=== PATIENT | female | born 1965 | race Caucasian/White ===

== ENCOUNTER 2018-04-29 07:09 | Inpatient (IN) | payer BC ==
--- OUTSIDE RECORDS SUMMARY | 2018-04-29 07:11 | XMS REPORT ---
:1965 [facility] Team Providers Name Role Phone Esther Lennon Provider Role Unavailable Allergies, Adverse Reactions, Alerts Substance Reaction Event Type Lisinopril cough/ heart flutters Drug Allergy Problems Problem Type Condition Code Onset Dates Condition Status Problem Obesity (BMI 30-39.9) E66.9 Active Problem Allergic rhinitis J30.9 Active Problem HTN (hypertension) I10 Active Problem Chest pain, unspecified type R07.9 Active Problem Upper back pain M54.9 Active Problem Mixed hyperlipidemia E78.2 Active Problem Hypertriglyceridemia E78.1 Active Problem Cervical pain (neck) M54.2 Active Problem Strep throat J02.0 Active Problem Lymphadenopathy R59.1 Active Assessment MARIXA (obstructive sleep apnea) G47.33 Active Assessment Mixed hyperlipidemia E78.2 Active Assessment Chest pain, unspecified type R07.9 Active Assessment HTN (hypertension) I10 Active Problem Hypertension, unspecified type I10 Active Assessment Upper back pain M54.9 Active Problem MARIXA (obstructive sleep apnea) G47.33 Active Medications Medication Code Code Instructions Start End Status Dosage System Date Date Losartan [facility] 13456087448 50 MG Orally Active 1 tablet Potassium Once a day Cardura [facility] 66362761007 1 MG Orally Active 1 tablet Once a day ProAir HFA [facility] 83521503419 108 (90 Base) Jan 30, Active 2 puffs as MCG/ACT 2018 needed for Inhalation sob/wheezing every 4-6 hrs Nasonex ND 26784138648 50 MCG/ACT Active 2 sprays in Nasally Once a each nostril day Advil [facility] 79444169789 200 MG Orally Active 1 tablet with Three times a food or milk day as needed Pennsaid [facility] 63642503685 2 % Transdermal Active 2 applications Twice a day to affected area Aspirin ND 62224682072 81 MG Orally Active 1 tablet Once daily Acyclovir ND 77527480413 400 MG Orally Active 1 tablet Twice a day Singulair [facility] 45725473030 10 MG Orally Active 1 tablet in Once a day the evening Multivitamin [facility] 61099496522 - Orally Active not defined Adult Results No Known Results Summary Purpose eClinicalWorks Submission
--- OUTSIDE RECORDS SUMMARY | 2018-04-29 07:11 | XMS REPORT ---
:1965 Author Organization e[employer] Care Team Providers Name Role Phone Esther Lennon Provider Role Unavailable Allergies, Adverse Reactions, Alerts Substance Reaction Event Type Lisinopril cough/ heart flutters Drug Allergy Problems Problem Type Condition Code Onset Dates Condition Status Problem MARIXA (obstructive sleep apnea) G47.33 Active Problem Hypertension, unspecified type I10 Active Assessment Strep throat J02.0 Active Assessment URI, acute J06.9 Active Assessment Acute pharyngitis, unspecified J02.9 Active etiology Problem Strep throat J02.0 Active Problem Cervical pain (neck) M54.2 Active Problem Lymphadenopathy R59.1 Active Problem Hypertriglyceridemia E78.1 Active Problem Obesity (BMI 30-39.9) E66.9 Active Problem Allergic rhinitis J30.9 Active Problem HTN (hypertension) I10 Active Medications Medication Code Code Instructions Start End Status Dosage System Date Date Aspirin [facility] 54869807695 81 MG Orally Active 1 tablet Once daily ProAir HFA [facility] 07157414570 108 (90 Base) Jan 30, Active 2 puffs as MCG/ACT 2018 needed for Inhalation sob/wheezing every 4-6 hrs Advil [facility] 07139918972 200 MG Orally Active 1 tablet with Three times a food or milk day as needed Cardura [facility] 15327781915 1 MG Orally Active 1 tablet Once a day Singulair [facility] 33085448985 10 MG Orally Active 1 tablet in Once a day the evening Acyclovir [facility] 79054782991 400 MG Orally Active 1 tablet Twice a day Pennsaid [facility] 77196378409 2 % Active 2 applications Transdermal to affected Twice a day area Nasonex [facility] 23825707857 50 MCG/ACT Active 2 sprays in Nasally Once a each nostril day Multivitamin [facility] 69931955468 - Orally Active not defined Adult Losartan [facility] 85377936315 50 MG Orally Active 1 tablet Potassium Once a day Clarithromycin [facility] 08646273181 500 MG Orally Mar 09Mar Active 1 tablet every 12 hrs 2018 Diflucan [facility] 35123612786 150 MG Orally Mar 09Mar Active as directed 1 tablet now; 2018 08, then repeat 2018 after completing abx. Results Name Result Date Reference Range Unit Abnormality Flag FLU TEST ----A Negative [id number] ----B Negative [id number] STREP A RAPID ----Result Positive [id number] Summary Purpose eClinicalWorks Submission
--- OUTSIDE RECORDS SUMMARY | 2018-04-29 07:11 | XMS REPORT ---
:1965 Author Organization eClinicalWorks Care Team Providers Name Role Phone Esther Lennon Provider Role Unavailable Allergies, Adverse Reactions, Alerts Substance Reaction Event Type Lisinopril cough/ heart flutters Drug Allergy Problems Problem Type Condition Code Onset Dates Condition Status Assessment MARIXA (obstructive sleep apnea) G47.33 Active Assessment Hypertension, unspecified type I10 Active Assessment Hypertriglyceridemia E78.1 Active Assessment Allergic rhinitis, unspecified J30.9 Active seasonality, unspecified trigger Assessment Obesity (BMI 30-39.9) E66.9 Active Problem HTN (hypertension) I10 Active Problem Hypertriglyceridemia E78.1 Active Problem Allergic rhinitis J30.9 Active Problem Obesity (BMI 30-39.9) E66.9 Active Problem MARIXA (obstructive sleep apnea) G47.33 Active Problem Cervical pain (neck) M54.2 Active Problem Hypertension, unspecified type I10 Active Medications Medication Code Code Instructions Start End Status Dosage System Date Date Aspirin [facility] 73886022050 81 MG Orally Active 1 tablet Once daily Advil [facility] 65203185350 200 MG Orally Active 1 tablet with Three times a food or milk day as needed Singulair [facility] 45965591742 10 MG Orally Active 1 tablet in Once a day the evening Losartan ND 23139093123 50 MG Orally Active 1 tablet Potassium Once a day Pennsaid [facility] 70567270754 2 % Transdermal Active 2 applications Twice a day to affected area Multivitamin [facility] 33854654583 - Orally Active not defined Adult Cardura [facility] 52143292850 1 MG Orally Active 1 tablet Once a day Nasonex ND 86574910509 50 MCG/ACT Active 2 sprays in Nasally Once a each nostril day Acyclovir [facility] 04178293492 400 MG Orally Active 1 tablet Twice a day Results No Known Results Summary Purpose eClinicalWorks Submission
--- OUTSIDE RECORDS SUMMARY | 2018-04-29 07:11 | XMS REPORT ---
:1965 Author Organization eClinicalWorks Care Team Providers Name Role Phone Esther Lennon Provider Role Unavailable Allergies No Known Allergies Problems Problem Type Condition Code Onset Dates Condition Status Problem MARIXA (obstructive sleep apnea) G47.33 Active Problem Hypertension, unspecified type I10 Active Problem Strep throat J02.0 Active Problem Cervical pain (neck) M54.2 Active Problem Lymphadenopathy R59.1 Active Problem Hypertriglyceridemia E78.1 Active Problem Obesity (BMI 30-39.9) E66.9 Active Problem Allergic rhinitis J30.9 Active Problem HTN (hypertension) I10 Active Medications No Known Medications Results No Known Results Summary Purpose eClinicalWorks Submission
--- OUTSIDE RECORDS SUMMARY | 2018-04-29 07:11 | XMS REPORT ---
:1965 Author Organization eClinicalWorks Care Team Providers Name Role Phone Esther Lennon Provider Role Unavailable Allergies No Known Allergies Problems Problem Type Condition Code Onset Dates Condition Status Problem MARIXA (obstructive sleep apnea) G47.33 Active Problem Hypertension, unspecified type I10 Active Assessment Lymphadenopathy R59.1 Active Assessment Strep throat J02.0 Active Problem Strep throat J02.0 Active Problem Cervical pain (neck) M54.2 Active Problem Lymphadenopathy R59.1 Active Problem Hypertriglyceridemia E78.1 Active Problem Obesity (BMI 30-39.9) E66.9 Active Problem Allergic rhinitis J30.9 Active Problem HTN (hypertension) I10 Active Medications No Known Medications Results No Known Results Summary Purpose eClinicalWorks Submission
--- NOTE | 2018-04-29 07:41 | ER ---
Nurse's Notes [facility] Name: Fouzia Reinoso Age: 53 yrs Sex: Female : 1965 Arrival Date: 04/29/2018 Time: 07:11 Bed 7 Private MD: Diagnosis: Chest pain, unspecified;Angina pectoris;Essential (primary) hypertension;Non-ST elevation (NSTEMI) myocardial infarction Presentation: 04/29 07:15 Presenting complaint: Substernal chest pain that radiates to upper back and nausea that hb started after getting out of bed this morning. Transition of care: patient was not received from another setting of care. Onset of symptoms was April 29, 2018. Risk Assessment: Do you want to hurt yourself or someone else? Patient reports no desire to harm self or others. Initial Sepsis Screen: Does the patient meet any 2 criteria? No. Patient's initial sepsis screen is negative. Does the patient have a suspected source of infection? No. Patient's initial sepsis screen is negative. Care prior to arrival: None. 07:15 Method Of Arrival: Ambulatory hb 07:15 Acuity: SUNNY 3 hb Historical: - Allergies: 07:17 No Known Allergies; hb - Home Meds: 07:17 unknown hypertension med [Active]; hb - PMHx: 07:17 Hypertension; GERD; hb - Immunization history:: Adult Immunizations up to date. - Social history:: Smoking status: Patient/guardian denies using tobacco. - Ebola Screening: : No symptoms or risks identified at this time. - Family history:: not pertinent. Screenin:18 Abuse screen: Denies threats or abuse. Denies injuries from another. Nutritional hb screening: No deficits noted. Tuberculosis screening: No symptoms or risk factors identified. Fall Risk None identified. Assessment: 07:30 General: Appears in no apparent distress. comfortable, well groomed, well developed, sg well nourished, Behavior is calm, cooperative, appropriate for age. Pain: Complains of pain in right scapular area, thoracic area and mid-sternal area Pain currently is 2 out of 10 on a pain scale. Neuro: Level of Consciousness is awake, alert, obeys commands, Oriented to person, place, time, Computer Science Professor are equal bilaterally Moves all extremities. Full function Gait is steady, Speech is normal, Facial symmetry appears normal. Cardiovascular: Capillary refill is brisk in bilateral fingers Patient's skin is warm and dry. Chest pain quality is clutching. Respiratory: Airway is patent Respiratory effort is even, unlabored, Respiratory pattern is regular, symmetrical, Denies cough, shortness of breath labored breathing. GI: Abdomen is round non-distended, Abd is soft and non tender X 4 quads. Reports normal bowel habits, tolerance of fluids, tolerance of food. : No signs and/or symptoms were reported regarding the genitourinary system. EENT: No signs and/or symptoms were reported regarding the EENT system. Derm: Skin is pink, warm \T\ dry. Musculoskeletal: No signs and/or symptoms reported regarding the musculoskeletal system. 07:49 Reassessment: Patient appears in no apparent distress at this time. xray at bedside at this time. 08:10 Reassessment: Patient appears in no apparent distress at this time. Patient is alert, sg oriented x 3, equal unlabored respirations, skin warm/dry/pink. Patient denies pain at this time. 09:10 Reassessment: Patient appears in no apparent distress at this time. Patient and/or sg family updated on plan of care and expected duration. Pain level reassessed. Patient is alert, oriented x 3, equal unlabored respirations, skin warm/dry/pink. at bedside updating pt on POC and the need for admission, pt and pt family stated understanding, pt stated understanding, awaiting a bed assignment. Patient denies pain at this time. Patient states feeling better. 10:20 Reassessment: Patient appears in no apparent distress at this time. No changes from aj1 previously documented assessment. Patient and/or family updated on plan of care and expected duration. Pain level reassessed. Patient is alert, oriented x 3, equal unlabored respirations, skin warm/dry/pink. 11:20 Reassessment: Patient and/or family updated on plan of care and expected duration. Pain aj1 level reassessed. Reassessment: Patient denies pain at this time. General: Appears in no apparent distress. comfortable, Behavior is calm, cooperative, appropriate for age. Neuro: Level of Consciousness is awake, alert, obeys commands, Oriented to person, place, time, situation, Speech is normal, Facial symmetry appears normal. Cardiovascular: Patient's skin is warm and dry. Chest pain is resolved at this time. Cardiovascular: Rhythm is sinus rhythm. Respiratory: Airway is patent Respiratory effort is even, unlabored, Respiratory pattern is regular, symmetrical. Derm: Skin is pink, warm \T\ dry. normal. Musculoskeletal: No signs and/or symptoms reported regarding the musculoskeletal system. Circulation, motion, and sensation intact. 12:00 Reassessment: Dr. Whipple at bedside. aj1 12:20 Reassessment: Patient appears in no apparent distress at this time. No changes from aj1 previously documented assessment. Patient and/or family updated on plan of care and expected duration. Pain level reassessed. Patient is alert, oriented x 3, equal unlabored respirations, skin warm/dry/pink. Patient denies pain at this time. 12:25 Reassessment: Notified Dr. Vazquez of patients repeat troponin level. Repeat EKG aj1 obtained. Dr Vazquez states he will come see the patient Patient denies pain at this time. 12:49 Reassessment: Dr. Vazquez at bedside. aj1 13:16 Reassessment: Patient and/or family updated on plan of care and expected duration. Pain aj1 level reassessed. General: Appears in no apparent distress. comfortable, Behavior is calm, cooperative, appropriate for age. Pain: Denies pain. Neuro: Level of Consciousness is awake, alert, obeys commands. Cardiovascular: Patient's skin is warm and dry. Rhythm is sinus rhythm Chest pain is denied at this time. Respiratory: Airway is patent Respiratory effort is even, unlabored, Respiratory pattern is regular, symmetrical. Derm: Skin is pink, warm \T\ dry. normal. Musculoskeletal: Circulation, motion, and sensation intact. 14:25 Reassessment: Patient appears in no apparent distress at this time. No changes from aj1 previously documented assessment. Patient and/or family updated on plan of care and expected duration. Pain level reassessed. Patient is alert, oriented x 3, equal unlabored respirations, skin warm/dry/pink. Vital Signs: 07:15 BP 159 / 107; Pulse 83; Resp 22; Pulse Ox 100% on R/A; sg 07:35 Weight 106.59 kg; sg 07:49 BP 132 / 93; Pulse 65; Resp 18; sg 07:52 Temp 97.2; sg 08:21 BP 129 / 84; Pulse 58; Resp 12; Pulse Ox 100% ; Pain 2/10; sg 09:20 BP 133 / 69; Pulse 80; Resp 17; Temp 97.2; Pulse Ox 98% on R/A; sg 10:20 BP 125 / 74; Pulse 60; Resp 18; Pulse Ox 99% on R/A; aj1 11:30 BP 119 / 64; Pulse 57; Resp 18; Pulse Ox 96% on R/A; aj1 13:30 BP 118 / 62; Pulse 66; Resp 18; Pulse Ox 97% on R/A; aj1 14:25 BP 116 / 70; Pulse 68; Resp 18; Pulse Ox 97% on R/A; aj1 Vitals: 08:21 Cardiac Rhythm Assessment Sinus dejuan. ED Course: 07:11 Patient arrived in ED. mr 07:14 Prem Duff MD is Attending Physician. luis 07:17 Triage completed. hb 07:17 Wing Perez RN is Primary Nurse. sg 07:17 Arm band placed on. hb 07:20 EKG done, by ED staff, reviewed by Prem Duff MD. sg 07:22 EKG done, by ED staff, reviewed by Prem Duff MD. dh3 07:30 Patient has correct armband on for positive identification. Bed in low position. Call sg light in reach. Side rails up X2. engine monitor on. Pulse ox on. NIBP on. Warm blanket given. Head of bed elevated. 07:39 Nathalie Vazquez MD is Hospitalizing Provider. luis 07:39 Yovani Macario DO is Hospitalizing Provider. luis 07:40 Initial lab(s) drawn, by me, sent to lab. Inserted saline lock: 20 gauge in left 3 antecubital area, using aseptic technique. Blood collected. 08:50 CT completed. Patient tolerated procedure well. Patient moved to CT via stretcher. kw1 Patient moved back from CT. 09:22 EKG done, by ED staff, reviewed by Prem Duff MD. dh3 11:47 Repeat lab(s) drawn. by me, sent to lab. 3 12:23 Notified ED physician of a critical lab result(s). trop 3.49. la1 13:51 Report given to NOEMÍ Eddy on 2nd floor. aj1 13:51 No provider procedures requiring assistance completed. Patient admitted, IV remains in aj1 place. Patient maintains SpO2 saturation greater than 95% on room air. Administered Medications: 07:40 Drug: NS 0.9% 1000 ml Route: IV; Rate: 125 ml/hr; Site: left antecubital; sg 14:24 Follow up: IV Status: Completed infusion; IV Intake: 750ml aj1 07:40 Drug: Aspirin Chewable Tablet 324 mg Route: PO; sg 08:23 Not Given (Duplicate Order): PlaVIX 300 mg PO once; if ct dissection neg luis 09:00 Drug: Lopressor 25 mg Route: PO; sg 09:00 Drug: Lovenox 1 mg/kg Route: Sub-Q; Site: right lower abdomen; sg 09:00 Drug: Pepcid 20 mg Route: IVP; Site: left antecubital; sg 13:53 Follow up: Response: No adverse reaction aj1 09:10 Drug: PlaVIX 600 mg Route: PO; sg 13:52 Follow up: Response: No adverse reaction aj1 11:54 Not Given (Zocor unavailable at this time, order changed to Lipitor): Zocor 40 mg PO aj1 once 12:22 Drug: Lipitor 40 mg Route: PO; aj1 13:52 Follow up: Response: No adverse reaction aj1 14:23 Not Given (Patient Refused): morphine 2 mg IVP once aj1 14:23 Not Given (Patient Refused): morphine 2 mg IVP once aj1 14:24 Not Given (Patient Refused): Zofran 4 mg IVP once; over 2 minutes aj1 Intake: 14:24 IV: 750ml; Total: 750ml. aj1 Outcome: 07:40 Decision to Hospitalize by Provider. [facility] 14:26 Admitted to Tele accompanied by tech, via wheelchair, with chart. aj1 14:26 Condition: stable 14:26 Discharge instructions given to family, Instructed on the need for admit, Demonstrated understanding of instructions. 14:26 Patient left the ED. aj1 Signatures: Irena Hernandez RN RN aj1 Wing Perez, RN Prem Saini MD MD cha Rivera, Mary mr Attema, Farshad RN NOEMÍ la1 Beth Correa RN RN hb Herrera, Palua 3 Noelle Vargas
--- NOTE | 2018-04-29 07:41 | EDPHYS ---
Physician Documentation [facility] Name: Fouzia Reinoso Age: 53 yrs Sex: Female : 1965 Arrival Date: 04/29/2018 Time: 07:11 Bed 7 Private MD: ED Physician Prem Duff HPI: 04/29 07:33 This 53 yrs old Female presents to ER via Ambulatory with complaints of Chest luis Pain. 07:33 The patient or guardian reports chest pain that is located primarily in the substernal luis area, epigastric area. Onset: 4 day(s) ago. The pain does not radiate. Associated signs and symptoms: The patient has no apparent associated signs or symptoms. The chest pain is described as a heaviness, a pressure. Duration: The patient or guardian reports multiple episodes, that have now resolved. Severity of pain: At its worst the pain was moderate. The patient has not experienced similar symptoms in the past. Historical: - Allergies: 07:17 No Known Allergies; hb - Home Meds: 07:17 unknown hypertension med [Active]; hb - PMHx: 07:17 Hypertension; GERD; hb - Immunization history:: Adult Immunizations up to date. - Social history:: Smoking status: Patient/guardian denies using tobacco. - Ebola Screening: : No symptoms or risks identified at this time. - Family history:: not pertinent. ROS: 07:33 Constitutional: Negative for fever, chills, and weight loss, Eyes: Negative for injury, luis pain, redness, and discharge, ENT: Negative for injury, pain, and discharge, Neck: Negative for injury, pain, and swelling, Respiratory: Negative for shortness of breath, cough, wheezing, and pleuritic chest pain, Abdomen/GI: Negative for abdominal pain, nausea, vomiting, diarrhea, and constipation, Back: Negative for injury and pain, : Negative for injury, bleeding, discharge, and swelling, MS/Extremity: Negative for injury and deformity, Skin: Negative for injury, rash, and discoloration, Neuro: Negative for headache, weakness, numbness, tingling, and seizure, Psych: Negative for depression, anxiety, suicide ideation, homicidal ideation, and hallucinations, Allergy/Immunology: Negative for hives, rash, and allergies, Endocrine: Negative for neck swelling, polydipsia, polyuria, polyphagia, and marked weight changes, Hematologic/Lymphatic: Negative for swollen nodes, abnormal bleeding, and unusual bruising. 07:33 Cardiovascular: Positive for chest pain. Exam: 07:33 Constitutional: This is a well developed, well nourished patient who is awake, alert, luis and in no acute distress. Head/Face: Normocephalic, atraumatic. Eyes: Pupils equal round and reactive to light, extra-ocular motions intact. Lids and lashes normal. Conjunctiva and sclera are non-icteric and not injected. Cornea within normal limits. Periorbital areas with no swelling, redness, or edema. ENT: Nares patent. No nasal discharge, no septal abnormalities noted. Tympanic membranes are normal and external auditory canals are clear. Oropharynx with no redness, swelling, or masses, exudates, or evidence of obstruction, uvula midline. Mucous membranes moist. Neck: Trachea midline, no thyromegaly or masses palpated, and no cervical lymphadenopathy. Supple, full range of motion without nuchal rigidity, or vertebral point tenderness. No Meningismus. Chest/axilla: Normal chest wall appearance and motion. Nontender with no deformity. No lesions are appreciated. Cardiovascular: Regular rate and rhythm with a normal S1 and S2. No gallops, murmurs, or rubs. Normal PMI, no JVD. No pulse deficits. Respiratory: Lungs have equal breath sounds bilaterally, clear to auscultation and percussion. No rales, rhonchi or wheezes noted. No increased work of breathing, no retractions or nasal flaring. Abdomen/GI: Soft, non-tender, with normal bowel sounds. No distension or tympany. No guarding or rebound. No evidence of tenderness throughout. Back: No spinal tenderness. No costovertebral tenderness. Full range of motion. Skin: Warm, dry with normal turgor. Normal color with no rashes, no lesions, and no evidence of cellulitis. MS/ Extremity: Pulses equal, no cyanosis. Neurovascular intact. Full, normal range of motion. Neuro: Awake and alert, GCS 15, oriented to person, place, time, and situation. Cranial nerves II-XII grossly intact. Motor strength 5/5 in all extremities. Sensory grossly intact. Cerebellar exam normal. Normal gait. Psych: Awake, alert, with orientation to person, place and time. Behavior, mood, and affect are within normal limits. 07:33 Musculoskeletal/extremity: DVT Exam: No signs of deep vein thrombosis. no pain, no swelling, no tenderness, negative Homans' sign noted on exam, no appreciated bluish discoloration, no erythema, no increased warmth. Vital Signs: 07:15 BP 159 / 107; Pulse 83; Resp 22; Pulse Ox 100% on R/A; sg 07:35 Weight 106.59 kg; sg 07:49 BP 132 / 93; Pulse 65; Resp 18; sg 07:52 Temp 97.2; sg 08:21 BP 129 / 84; Pulse 58; Resp 12; Pulse Ox 100% ; Pain 2/10; sg 09:20 BP 133 / 69; Pulse 80; Resp 17; Temp 97.2; Pulse Ox 98% on R/A; sg 10:20 BP 125 / 74; Pulse 60; Resp 18; Pulse Ox 99% on R/A; aj1 11:30 BP 119 / 64; Pulse 57; Resp 18; Pulse Ox 96% on R/A; aj1 13:30 BP 118 / 62; Pulse 66; Resp 18; Pulse Ox 97% on R/A; aj1 14:25 BP 116 / 70; Pulse 68; Resp 18; Pulse Ox 97% on R/A; aj1 MDM: 07:14 Patient medically screened. [facility] 07:36 Data reviewed: vital signs, nurses notes, lab test result(s), EKG, radiologic studies, [facility] CT scan, plain films. 04/29 07:32 Order name: Basic Metabolic Panel [facility] 04/29 07:32 Order name: CBC with Diff [facility] 04/29 07:32 Order name: LFT's [facility] 04/29 07:32 Order name: Magnesium [facility] 04/29 07:32 Order name: NT PRO-BNP [facility] 04/29 07:32 Order name: PT-INR [facility] 04/29 07:32 Order name: Troponin (emerg Dept Use Only) [facility] 04/29 07:32 Order name: Lipase [facility] 04/29 07:32 Order name: Urine Culture [facility] 04/29 08:01 Order name: CBC with Automated Diff; Complete Time: 08:22 EDPR 04/29 08:07 Order name: Protime (+INR); Complete Time: 08:22 EDPR 04/29 08:13 Order name: Basic Metabolic Panel; Complete Time: 08:22 EDPR 04/29 08:13 Order name: Liver (Hepatic) Function; Complete Time: 08:22 EDPR 04/29 08:13 Order name: Troponin (Emerg Dept Use Only); Complete Time: 08:22 [facility] 04/29 07:32 Order name: XRAY Chest (1 view) [facility] 04/29 07:32 Order name: CT Aorta for Dissection [facility] 04/29 08:13 Order name: NT PRO-BNP; Complete Time: 08:22 EDPR 04/29 08:13 Order name: Magnesium; Complete Time: 08:22 EDPR 04/29 08:13 Order name: Lipase; Complete Time: 08:22 EDPR 04/29 09:27 Order name: CT; Complete Time: 10:42 [facility] 04/29 10:13 Order name: Urine Dipstick--Ancillary (enter results) md 04/29 10:35 Order name: RAD; Complete Time: 10:42 [facility] 04/29 10:43 Order name: Lipid Profile [facility] 04/29 11:37 Order name: Troponin (emerg Dept Use Only) [facility] 04/29 12:24 Order name: Troponin (Emerg Dept Use Only) [facility] 04/29 13:59 Order name: Urine Dipstick-Ancillary [facility] 04/29 07:32 Order name: EKG; Complete Time: 07:33 [facility] 04/29 07:32 Order name: Cardiac monitoring; Complete Time: 07:44 [facility] 04/29 07:32 Order name: EKG - Nurse/Tech; Complete Time: 07:44 [facility] 04/29 07:32 Order name: IV Saline Lock; Complete Time: 07:45 [facility] 04/29 07:32 Order name: Labs collected and sent; Complete Time: 07:45 [facility] 04/29 07:32 Order name: O2 Per Protocol; Complete Time: 07:45 [facility] 04/29 07:32 Order name: O2 Sat Monitoring; Complete Time: 07:45 [facility] 04/29 07:32 Order name: Urine Dipstick-Ancillary (obtain specimen); Complete Time: 11:02 [facility] 04/29 07:37 Order name: Bilateral blood pressure; Complete Time: 07:48 [facility] 04/29 09:06 Order name: EKG; Complete Time: 09:06 [facility] 04/29 09:06 Order name: EKG - Nurse/Tech; Complete Time: 09:26 luis Administered Medications: 07:40 Drug: NS 0.9% 1000 ml Route: IV; Rate: 125 ml/hr; Site: left antecubital; sg 14:24 Follow up: IV Status: Completed infusion; IV Intake: 750ml aj1 07:40 Drug: Aspirin Chewable Tablet 324 mg Route: PO; sg 08:23 Not Given (Duplicate Order): PlaVIX 300 mg PO once; if ct dissection neg luis 09:00 Drug: Lopressor 25 mg Route: PO; sg 09:00 Drug: Lovenox 1 mg/kg Route: Sub-Q; Site: right lower abdomen; sg 09:00 Drug: Pepcid 20 mg Route: IVP; Site: left antecubital; sg 13:53 Follow up: Response: No adverse reaction aj1 09:10 Drug: PlaVIX 600 mg Route: PO; sg 13:52 Follow up: Response: No adverse reaction aj1 11:54 Not Given (Zocor unavailable at this time, order changed to Lipitor): Zocor 40 mg PO aj1 once 12:22 Drug: Lipitor 40 mg Route: PO; aj1 13:52 Follow up: Response: No adverse reaction aj1 14:23 Not Given (Patient Refused): morphine 2 mg IVP once aj1 14:23 Not Given (Patient Refused): morphine 2 mg IVP once aj1 14:24 Not Given (Patient Refused): Zofran 4 mg IVP once; over 2 minutes aj1 Disposition: 04/29/18 07:40 Hospitalization ordered by Yovani Macario for Inpatient Admission. Preliminary diagnosis are Chest pain, unspecified, Angina pectoris, Essential (primary) hypertension, Non-ST elevation (NSTEMI) myocardial infarction. - Bed requested for Telemetry/MedSurg (Inpatient). - Status is Inpatient Admission. aj1 - Condition is Fair. - Problem is new. - Symptoms have improved. UTI on Admission? No Signatures: Dispatcher [employer] Irena Carr RN RN aj1 Wing Perez RN RN sg Anderson, Corey, MD MD cha Solis, Maria ms Baxter, Heather, RN RN Corrections: (The following items were deleted from the chart) 08:24 07:40 Hospitalization Ordered by Yovani Macario DO for Observation. Preliminary [facility] diagnosis is Chest pain, unspecified; Angina pectoris; Essential (primary) hypertension. Bed requested for Telemetry/MedSurg (observation). Status is Observation. Condition is Fair. Problem is new. Symptoms have improved. UTI on Admission? No. luis 12:18 08:24 04/29/2018 07:40 Hospitalization Ordered by Yovani Macario DO for Inpatient ms Admission. Preliminary diagnosis is Chest pain, unspecified; Angina pectoris; Essential (primary) hypertension. Bed requested for Telemetry/MedSurg (Inpatient). Status is Inpatient Admission. Condition is Fair. Problem is new. Symptoms have improved. UTI on Admission? No. luis 12:24 12:18 04/29/2018 07:40 Hospitalization Ordered by Yovani Macario DO for Inpatient luis Admission. Preliminary diagnosis is Chest pain, unspecified; Angina pectoris; Essential (primary) hypertension. Bed requested for Telemetry/MedSurg (Inpatient). Status is Inpatient Admission. Condition is Fair. Problem is new. Symptoms have improved. UTI on Admission? No. ms 14:26 12:24 04/29/2018 07:40 Hospitalization Ordered by Yovani Macario DO for Inpatient aj1 Admission. Preliminary diagnosis is Chest pain, unspecified; Angina pectoris; Essential (primary) hypertension; Non-ST elevation (NSTEMI) myocardial infarction. Bed requested for Telemetry/MedSurg (Inpatient). Status is Inpatient Admission. Condition is Fair. Problem is new. Symptoms have improved. UTI on Admission? No. luis
[2018-04-29] MEDS ORDERED: MORPHINE 2 MG/ML SYR ONE (07:50)
[2018-04-29] MEDS ORDERED: ONDANSETRON 4 MG/2 ML VIAL ONE (07:50)
[2018-04-29] MEDS ORDERED: METOPROLOL TAR 25 MG TAB ONE (07:50)
[2018-04-29] MEDS ORDERED: ASPIRIN 81 MG CHEWABLE TABLET ONE (07:50)
[2018-04-29 07:51] LABS: Absolute Lymphocytes (CBC) 1.9 K/uL (0.7-4.9); Absolute Monocytes 0.4 K/uL (0.1-1.3); Absolute Neutrophil 3.8 K/uL (1.8-8.0); Basophils % 0.8 % (0-1.3); Eosinophils % 2.5 % (0-4.4); Hematocrit 40.4 % (36.0-45.0); Lymphocytes % 30.4 % (15.3-44.8); MPV 8.4 fL (7.6-11.3); Monocytes % 6.4 % (3.3-12.3); RBC Red Blood Cell Count 4.66 M/uL (3.86-4.86)
[2018-04-29] MEDS ORDERED: ENOXAPARIN 100 MG/ML SYR SQ ONE (07:51)
[2018-04-29] MEDS ORDERED: NA CHLORIDE 0.9% 1,000 ML ONE (07:51)
[2018-04-29 08:05] LABS: Protime INR 1.03
[2018-04-29 08:13] LABS: ALT/SGPT 46 U/L (12-78); AST/SGOT 24 U/L (15-37); Albumin 3.8 g/dL (3.4-5.0); Alkaline Phosphatase 94 U/L (45-117); BUN Blood Urea Nitrogen 10 mg/dL (7-18); Bicarbonate 25 mmol/L (21-32); Bilirubin Direct < 0.1 mg/dL (0-0.2); Bilirubin Total 0.3 mg/dL (0.2-1.0); Glucose Level 138 mg/dL (74-106); Lipase 149 U/L (73-393); Magnesium 2.1 mg/dL (1.8-2.4); NT PRO-BNP 17 pg/mL (<125); Potassium 4.6 mmol/L (3.5-5.1); Protein, Total 7.7 g/dL (6.4-8.2); Sodium Level 139 mmol/L (136-145); Troponin (Emerg Dept Use Only) 0.18 ng/mL (0.0-0.045)
[2018-04-29] MEDS ORDERED: FAMOTIDINE 20 MG/2 ML VIAL IV ONE (08:52)
[2018-04-29] MEDS ORDERED: CLOPIDOGREL 75 MG TABLET ONE (08:52)
--- NOTE | 2018-04-29 09:27 | RAD REPORT ---
EXAM DESCRIPTION: CT - Angio Aorta For Dissection - 04/29/2018 8:54 am CLINICAL HISTORY: . Chest pain/abdominal pain COMPARISON: None TECHNIQUE: Computed tomography angiography of the chest, abdomen pelvis were obtained. 100 cc Isovue 370 was administered intravenously. Coronal and sagittal reconstruction were performed. MIP 3D reconstruction was performed All CT scans are performed using dose optimization technique as appropriate and may include automated exposure control or mA/KV adjustment according to patient size. FINDINGS: An aortic dissection is not seen. An aortic aneurysm is not displayed. The celiac, SMA and ULYSSES are patent . Mild narrowing of the celiac artery is seen. A lung consolidation is not present. A pericardial effusion is not seen. A pleural effusion is not n oted. Fatty liver Spleen, pancreas adrenals kidneys demonstrate no significant abnormality. There no evidence diverticulitis. An IUD is present within the uterus. Small umbilical hernia contains fat. Gastric lap band in place IMPRESSION: Negative for an aortic dissection.
--- NOTE | 2018-04-29 10:34 | RAD REPORT ---
EXAM DESCRIPTION: Jessica Single View04/29/2018 8:20 am CLINICAL HISTORY: Chest pain COMPARISON: April 27 FINDINGS: The lungs appear clear of acute infiltrate. The heart is borderline enlarged IMPRESSION: No acute abnormalities displayed
[2018-04-29] MEDS ORDERED: ATORVASTATIN 20 MG TAB PO ONE (12:00)
[2018-04-29] MEDS ORDERED: ATORVASTATIN 20 MG TAB ONE (12:08)
--- NOTE | 2018-04-29 12:34 | EKG ---
Test Date: 2018-04-29 Test Time: 09:18:53 Warehouse Operations Manager: ROMERO MEASUREMENT RESULTS: Intervals: Rate: 60 MI: 206 QRSD: 88 QT: 400 QTc: 400 [place]: P: 7 MI: 206 QRS: 15 T: 141 INTERPRETIVE STATEMENTS: Normal sinus rhythm T wave abnormality, consider anterolateral ischemia Abnormal ECG Compared to ECG 04/29/2018 07:18:15 T-wave abnormality now present Possible ischemia now present Electronically Signed On 04-29-18 12:33:30 PHARMACIST IN CHARGE OWNER by Rodney Whipple
--- NOTE | 2018-04-29 12:35 | EKG ---
Test Date: 2018-04-29 Test Time: 07:18:15 Geodetic Computator: ROMERO MEASUREMENT RESULTS: Intervals: Rate: 60 NH: 194 QRSD: 92 QT: 430 QTc: 430 [place]: P: 49 NH: 194 QRS: 52 T: 48 INTERPRETIVE STATEMENTS: Normal sinus rhythm Normal ECG Compared to ECG 04/27/2018 11:16:44 Sinus bradycardia no longer present ST (T wave) deviation no longer present Possible ischemia no longer present Electronically Signed On 04-29-18 12:33:42 BANK OPERATIONS OFFICER by Rodney Whipple
[2018-04-29 13:59] LABS: Urine Blood NEGATIVE (NEG); Urine Glucose NEGATIVE (NEG); Urine Protein NEGATIVE (NEG); Urine Specific Gravity <1.005 (1.005-1.030)
[2018-04-29] MEDS ORDERED: IPRATROPIUM BROM 0.5MG/2.5ML ONE (14:19)
[2018-04-29] MEDS ORDERED: ALBUTEROL 2.5 MG/3 ML NEB SOL ONE (14:19)
[2018-04-29] MEDS ORDERED: predniSONE 20 MG TAB ONE (14:19)
--- NOTE | 2018-04-29 14:51 | CON ---
Chief Complaint: Chest pain. History Of Present Illness: Mrs. Reinoso has been having chest pain off and on for about 2 weeks. The spells seem to resolve over the last 3 or 4 days until this morning when she had the worst pain. Ernst patel has an elevated troponin. She has EKG changes. She is pain free, but now her T-waves in the anter ior leads are slightly different than when she first presented. She has no previous history of myoca rdial infarction or stroke or diabetes. She uses no tobacco. She was treated for hypertension. She was told that her lipids were close to normal. She saw a physician 3 or 4 days ago for this and was told everything looked fine. The patient has not had any testing done on her heart, never had a hea rt catheterization or a stress test. Physical Examination: General: Appears to be her stated age of 53, obese, alert, oriented, pleasant, not in distress. Lungs: Clear. Carotids: No bruit. Heart: Normal. Abdomen: Soft. Extremities: Normal. Radial pulses normal. Ulnar pulses normal. Laboratory Data: An EKG shows T-wave flattening and inversion in leads V1 and V2. Her highest tropo gillian is 0.18. Her creatinine is 0.94. Blood sugar 138. Impression: Mrs. Reinoso has unstable angina. She should undergo a cardiac cath and possible stent at this point. We will do it tomorrow. We will load her with Effient today and plan to do a cardiac c ath and possible stent tomorrow. She seems to understand the procedure, its potential benefits, indications, risks, and agrees to proceed. ISAÍAS Voice ID: [id number] Report ID: [id number]
[2018-04-29] MEDS: ASPIRIN EC 81 MG TAB PO SCH (14:54)
[2018-04-29] MEDS ORDERED: ACETAMINOPHEN 500 MG TAB PO PRN (14:54)
[2018-04-29] MEDS ORDERED: LISINOPRIL 10 MG TAB PO SCH (14:54)
[2018-04-29] MEDS ORDERED: MORPHINE 2 MG/ML SYR IV PRN (14:54)
[2018-04-29] MEDS: NITROGLYCERIN 0.4 MG/TAB SL PRN ×4 (15:17→23:43)
[2018-04-29] MEDS: METOPROLOL TAR 25 MG TAB PO SCH ×2 (15:20→21:31)
[2018-04-29 15:36] VITALS: BMI 38.8
[2018-04-29] MEDS ORDERED: INFLUENZA VACCINE (for 3y+) 0.5 ML DOSE IMVAC ONE (16:00)
[2018-04-29 16:02] LABS: Troponin I 3.93 ng/mL (0.0-0.045)
[2018-04-29] MEDS: Enoxaparin 120 MG/0.8 ML SYR SQ SCH ×2 (16:09→21:00)
[2018-04-29] MEDS: ATORVASTATIN 40 MG TAB PO SCH (21:31)
[2018-04-29] MEDS: LORATADINE 10 MG TAB PO SCH (21:35)
--- NOTE | 2018-04-30 01:37 | HP ---
Date of Admission: 04/29/2018 Chief Complaint: Chest pain. History Of Present Illness: The patient is a 53-year-old female with past medical history of seasona l allergies, hypertension, who was in her usual state of health until several days prior to admission . Approximately 2 weeks ago, patient started having chest pain which was substernal, described as sq ueezing and sensation of tightness. The patient had the pain come and go during this duration; howev er, over the past couple of days, has become more intense and unrelenting. The patient does report s ome dizziness and diaphoresis. The patient's pain radiates to the back and no alleviating factors. The patient did take her daily aspirin this morning and then came into the ER for further evaluation. Her workup revealed troponin level of 0.18, which elevated to 3.49. The patient's EKG initially wa s normal sinus rhythm. Repeat EKG did show some T-wave inversions. She states her chest pain is imp roved. Past Medical History: Hypertension and seasonal allergies. Past Surgical History: None. Allergies: NO KNOWN DRUG ALLERGIES. Medications: Aspirin, loratadine, ARB, and hydrochlorothiazide. Social History: The patient denies any tobacco use. Does drink an occasional beer. The patient is , independent in her activities of daily living. Family History: Grandmother had heart attack at the age of 50. Review of Systems: Eleven-point system reviewed, negative except as per HPI. Physical Examination: Vital Signs: Blood pressure 159/107, pulse 83, respirations 22, and O2 of 100% on room air. Tempera ture 97.2. General: Awake, alert, oriented x3, in some mild distress. Obese female. HEENT: Normocephalic, atraumatic. PERRLA. EOMI. Moist mucous membranes. Oropharynx is clear. No rmal dentition. Conjunctivae anicteric. Neck: Supple. No JVD. Trachea midline. CV: S1, S2. Regular rate and rhythm. Peripheral pulses present bilaterally. Respiratory: Moving air well bilaterally. No wheezing or stridor. No use of accessory muscles. Gastrointestinal: Abdomen is soft, nontender, nondistended. Positive bowel sounds. Extremities: No clubbing, cyanosis, or edema. No calf tenderness. Neuro: Cranial nerves 2-12 intact grossly. No focal neurological deficit. Speech is normal. Psych: Mood is okay. Affect is full. Insight and judgment are good. Skin: No rashes. Normal skin turgor. Laboratory Data: UA is negative. Sodium 139, potassium 4.6, chloride 107, CO2 of 25, BUN 10, creati nine 0.94, glucose 138, calcium 8.8, magnesium 2.1. Troponin 0.18. Repeat troponin is 3.49. WBC 6. 3, H and H 13.5 and 40.4, platelets 270. INR 1.03. CT aortic dissection shows negative for aortic d issection. Fatty liver disease. IUD present within the uterus. Chest x-ray shows no acute abnormal ities, personally reviewed. Thoracic spine x-ray shows minimal degenerative endplate spurring. No s ignificant thoracic spine finding. Assessment And Plan: A 53-year-old female with: 1.Unstable angina, non-ST segment elevation myocardial infarction. Troponin level is elevated. We will start on chest pain guidelines, full-dose Lovenox. Dr. Whipple plans for cardiac catheterization in a.m. 2.Obesity, BMI 38.8. 3.Essential hypertension. We will resume home medications as appropriate. 4.Hyperglycemia without diagnosis of diabetes. We will continue to monitor, check hemoglobin A1c. 5.Gastroesophageal reflux disease without esophagitis. Continue PPI. Admit the patient to Med-Surg, place as inpatient. Length of stay, greater than 2 midnights. EARNEST Voice ID: [id number]
[2018-04-30 06:20] LABS: Absolute Monocytes 0.6 K/uL (0.1-1.3); Absolute Neutrophil 5.9 K/uL (1.8-8.0); Basophils % 0.9 % (0-1.3); Eosinophils % 1.9 % (0-4.4); Hematocrit 40.7 % (36.0-45.0); Lymphocytes % 23.2 % (15.3-44.8); MPV 8.2 fL (7.6-11.3); Monocytes % 6.9 % (3.3-12.3); RBC Red Blood Cell Count 4.65 M/uL (3.86-4.86)
[2018-04-30 06:33] LABS: Potassium 4.1 mmol/L (3.5-5.1)
[2018-04-30] MEDS: METOPROLOL TAR 25 MG TAB PO SCH ×2 (08:25→20:44)
[2018-04-30] MEDS: ASPIRIN EC 81 MG TAB PO SCH (08:25)
[2018-04-30] MEDS: DOXAZOSIN 2 MG TAB PO SCH (08:26)
[2018-04-30] MEDS: LORATADINE 10 MG TAB PO SCH (08:31)
[2018-04-30] MEDS ORDERED: LOSARTAN POTASSIUM 50 MG TABLET PO SCH (09:00)
[2018-04-30] MEDS ORDERED: DOXAZOSIN 1 MG TAB PO SCH (09:00)
[2018-04-30] MEDS ORDERED: HEPA 1000U/500MLS 1,000 UNIT/500 ML BAG IV ONE ×2 (09:34→10:45)
[2018-04-30] MEDS ORDERED: NA CHLORIDE 0.9% 50 ML ONE (09:35)
[2018-04-30] MEDS ORDERED: NA CHLORIDE 0.9% 500 ML ONE (09:35)
[2018-04-30] MEDS ORDERED: HEPARIN 5000 UNIT/ML 1 ML VIAL ONE (09:36)
[2018-04-30] MEDS ORDERED: NICARDIPINE HCL 25 MG/10 ML IV ONE (09:36)
[2018-04-30] MEDS ORDERED: NITROGLYCERIN 100 MCG/ML SYR (for cath lab use only) IV ONE (09:36)
[2018-04-30] MEDS ORDERED: ATROPINE SULF 1 MG/10 ML SYR IV ONE (09:36)
[2018-04-30] MEDS ORDERED: NITROGLYCERIN/D5W 25 MG/250 ML BTL IV ONE (09:36)
[2018-04-30] MEDS ORDERED: FENTANYL CITR 100 MCG/2 ML ONE (09:39)
[2018-04-30] MEDS ORDERED: MIDAZOLAM HCL 2 MG/2 ML INJ ONE ×2 (09:39→09:45)
[2018-04-30] MEDS ORDERED: PRASUGREL (EFFIENT) 10 MG TAB ONE (10:36)
[2018-04-30] MEDS: VALSARTAN 80 MG TAB PO SCH (11:00)
[2018-04-30] MEDS ORDERED: VALSARTAN 80 MG TAB PO SCH (11:00)
--- NOTE | 2018-04-30 17:41 | PN ---
Date of Progress Note: 04/30/2018 Subjective: Patient is seen and examined. Chart reviewed and case discussed with RN and Dr. Whipple. The patient went for a cardiac catheterization today and had stent placed in the LAD. Medications: List reviewed. Physical Examination: Vital Signs: Temperature 97.1, heart rate 57, blood pressure 145/70, respirations 18, O2 96% on room air. General: Awake, alert, oriented x3, not in any acute distress. Mildly ill-appearing obese female. CV: S1, S2. Regular rate and rhythm. Peripheral pulses present. Respiratory: Moving air well bilaterally. No wheezing or stridor. Gastrointestinal: Abdomen is soft, nontender, nondistended. Positive bowel sounds. Extremities: No clubbing, cyanosis, or edema. Neurologic: Nonfocal. Laboratory Data: Sodium 141, potassium 4.1, chloride 107, CO2 26, BUN 9, creatinine 0.95, glucose 13 3, calcium 8.9. Triglycerides 205, cholesterol 165, LDL 83, HDL 41. WBC 8.8, H and H 13.5, 40.7, pl atelets 284. Assessment And Plan: A 53-year-old female with, 1.Xrp-AF-ripunmwpo myocardial infarction. The patient is status post cardiac catheterization with s tent in the left anterior descending. We will continue with dual anti-platelet therapy. Appreciate Dr. Whipple' input and continue chest pain guidelines. 2.Essential hypertension, stable. We will resume home medications. 3.Obesity, BMI of 38.8. 4.Hyperglycemia without diagnosis of diabetes. We will check hemoglobin A1c. 5.Gastroesophageal reflux disease without esophagitis. Continue PPI. 6.Obesity, BMI of 38.8. Plan: We will continue to monitor. Likely discharge in next 24 hours once cleared by Cardiology. SA/MODL Voice ID: [id number] Report ID: [id number]
--- NOTE | 2018-04-30 18:44 | EKG ---
Test Date: 2018-04-29 Test Time: 12:35:08 Demo Coordinator: MEASUREMENT RESULTS: Intervals: Rate: 58 W[place]: 216 QRSD: 86 QT: 426 QTc: 418 [place]: P: 24 [place]: 216 QRS: 8 T: 154 INTERPRETIVE STATEMENTS: Sinus bradycardia with 1st degree AV block T wave abnormality, consider anterolateral ischemia Abnormal ECG Compared to ECG 04/29/2018 12:34:13 No significant changes Electronically Signed On 04-30-18 18:43:37 BALLAST CLEANING MACHINE OPERATOR by Rodney Whipple
--- NOTE | 2018-04-30 18:44 | EKG ---
Test Date: 2018-04-29 Test Time: 12:34:13 Realty Specialist: MEASUREMENT RESULTS: Intervals: Rate: 53 AL: 218 QRSD: 86 QT: 444 QTc: 416 [place]: P: 13 AL: 218 QRS: 13 T: 131 INTERPRETIVE STATEMENTS: Sinus bradycardia with 1st degree AV block T wave abnormality, consider anterolateral ischemia Abnormal ECG Compared to ECG 04/29/2018 09:18:53 First degree AV block now present Sinus rhythm no longer present T-wave abnormality still present Possible ischemia still present Electronically Signed On 04-30-18 18:43:40 WASTEWATER PLANT OPERATOR by Rodney Whipple
[2018-04-30] MEDS: ATORVASTATIN 40 MG TAB PO SCH (20:44)
--- NOTE | 2018-04-30 21:41 | OP ---
Surgeon: Rodney Whipple MD Procedure: Left heart catheterization, coronary left ventricular angiography, percutaneous coronary intervention with stent of the mid left anterior descending for a 90% stenosis associated with non-ST -elevation myocardial infarction. Procedure Findings: The patient's ejection fraction is normal, but there is hypokinesis of the anter olateral wall. Her end-diastolic pressure was elevated above 25 mmHg. The right coronary was free o f any significant disease. Left main circumflex, proximal LAD, first diagonal all free of any signif icant disease. The mid LAD stenosis had an 80% to 90% stenosis. It looked like it had some thrombus . It was successfully stented, and after stenting, there was no residual stenosis, no thrombus, norm al distal flow MARCELLA-3. Procedure In Detail: The patient gave us informed consent. She was brought to the cardiac roving tester laboratory in a fasting state. She was sedated with Versed and fentanyl, titrated to an adequate level of sedat ion, prepared and draped in usual sterile fashion. Right radial artery was identified. Tissues arou nd the artery were anesthetized with 1% lidocaine. A 21-gauge needle was used to enter the right rad ial artery. It was cannulated with a 0.021 inch diameter guidewire that was used to place a 6-[place] Terumo radial sheath. It was flushed and a radial cocktail was given, consisting of nicardipine, he brittni, and nitroglycerin. A TIG catheter was guided into the ascending aorta using fluoroscopy and a Terumo Glidewire with a short-radius J-tip. We angiogrammed right coronary, left coronary, left jennifer tricle, all with the TIG catheter. After a decision was made to put a stent in the blocked artery, w jorge placed an exchange length J-wire into the ascending aorta, removed the TIG catheter, administered A ngiomax, demonstrated activated clotting time over 400 seconds. We used an XBLAD 3.5 with side holes to cannulate the left main ostium. We were able to cross the lesion with a [place] wire and then we crossed the lesion with a 3.0 x 16 Synergy stent. We inflated it to 12 atmospheres. Excellent angio graphic result. After removal of the balloon catheter, leaving the stent in place, the angiographic result was excellent. We removed the [place] wire and took orthogonal views. We gave a dose of 200 m cg of nitroglycerin intracoronary and 200 mcg of nitroglycerin into the brachial artery on . We removed the guide catheter over a J-wire, flushed the sheath, removed it, and closed the arteri otomy using a TR Band. Estimated Blood Loss: 10 mL. Complications: None. DARYL/ERNESTO Voice ID: [id number] Report ID: [id number]
[2018-05-01 08:23] LABS: Hematocrit 40.7 % (36.0-45.0); MPV 8.2 fL (7.6-11.3); RBC Red Blood Cell Count 4.75 M/uL (3.86-4.86)
[2018-05-01] MEDS: ASPIRIN EC 81 MG TAB PO SCH (08:24)
[2018-05-01] MEDS: VALSARTAN 80 MG TAB PO SCH (08:24)
[2018-05-01] MEDS: DOXAZOSIN 2 MG TAB PO SCH (08:25)
[2018-05-01] MEDS: METOPROLOL TAR 25 MG TAB PO SCH (08:25)
[2018-05-01] MEDS: LORATADINE 10 MG TAB PO SCH (08:26)
[2018-05-01 08:41] LABS: Potassium 3.9 mmol/L (3.5-5.1)
[2018-05-01] MEDS ORDERED: CLOPIDOGREL 75 MG TABLET PO SCH (09:00)
[2018-05-01 13:06] VITALS: BP 131/77; TEMP 98.3; O2SAT 95
--- NOTE | 2018-05-03 18:51 | P.DS ---
Admission Date: 04/29/18 Discharge Date: 05/01/18 Disposition: ROUTINE DISCHARGE Discharge Condition: GOOD Reason for Admission: Chest pain Consultations: Cardiology, Dr. fragoso Procedures: 04/30/2018: Heart catheterization with stent placement in left anterior descending Brief History of Present Illness: : The patient is a 53-year-old female with past medical history of seasonal allergies, hypertension, who was in her usual state of health until several days prior to admission. Approximately 2 weeks ago, patient started having chest pain which was substernal, described as squeezing and sensation of tightness. The patient had the pain come and go during this duration; however, over the past couple of days, has become more intense and unrelenting. The patient does report some dizziness and diaphoresis. The patient's pain radiates to the back and no alleviating factors. The patient did take her daily aspirin this morning and then came into the ER for further evaluation. Her workup revealed troponin level of 0.18, which elevated to 3.49. The patient 's EKG initially was normal sinus rhythm. Repeat EKG did show some T-wave inversions. She states her chest pain is improved Hospital Course: Patient was admitted for non ST elevation myocardial infarction. Cardiology was consulted. She was started on chest pain guidelines. She underwent a cardiac catheterization with a stent in the left anterior descending. She was continued on dual antiplatelet therapy and chest pain guidelines. She otherwise remained stable throughout the stay. She was discharged on aspirin, Plavix, statin and a beta-denisa. She was then cleared by Cardiology for discharge. She will follow up with cardiology in 2 weeks and her primary care physician in a few days. Prior to discharge, she was alert oriented x3, in no acute distress and symptom-free. She was discharged home in a stable manner Vital Signs/Physical Exam: Temp Pulse Resp BP Pulse Ox 98.3 F 62 17 131/77 94 05/01/18 12:00 05/01/18 12:00 05/01/18 12:00 05/01/18 12:05/01/18 08:00 General: Alert, In no apparent distress HEENT: Atraumatic, PERRLA, EOMI Neck: Supple, JVD not distended Respiratory: Clear to auscultation bilaterally, Normal air movement Cardiovascular: Regular rate/rhythm, Normal S1 S2 Gastrointestinal: Normal bowel sounds, No tenderness Musculoskeletal: No tenderness Integumentary: No rashes Neurological: Normal speech, Normal tone, Normal affect Lymphatics: No axilla or inguinal lymphadenopathy Laboratory Data at Discharge: WBC 7.7 K/uL (4.3-10.9) 05/01/18 08:11 Hgb 13.9 g/dL (12.0-15.0) 05/01/18 08:11 Hct 40.7 % (36.0-45.0) 05/01/18 08:11 Plt Count 272 K/uL (152-406) 05/01/18 08:11 PT 12.1 SECONDS (9.5-12.5) 04/29/18 07:40 INR 1.03 04/29/18 07:40 Sodium 140 mmol/L (136-145) 05/01/18 08:11 Potassium 3.9 mmol/L (3.5-5.1) 05/01/18 08:11 BUN 8 mg/dL (7-18) 05/01/18 08:11 Creatinine 0.83 mg/dL (0.55-1.3) 05/01/18 08:11 Glucose 119 mg/dL (74-106) H 05/01/18 08:11 Magnesium 2.1 mg/dL (1.8-2.4) 04/29/18 07:40 Total Bilirubin 0.3 mg/dL (0.2-1.0) 04/29/18 07:40 AST 24 U/L (15-37) 04/29/18 07:40 ALT 46 U/L (12-78) 04/29/18 07:40 Alkaline Phosphatase 94 U/L (45-117) 04/29/18 07:40 Troponin I 4.81 ng/mL (0.0-0.045) H* 04/30/18 14:53 Triglycerides Cancelled 04/30/18 06:00 Cholesterol Cancelled 04/30/18 06:00 HDL Cholesterol Cancelled 04/30/18 06:00 Cholesterol/HDL Ratio Cancelled 04/30/18 06:00 Lipase 149 U/L (73-393) 04/29/18 07:40 Home Medications: Aspirin Chewable [Aspirin Chewable*] 81 mg PO DAILY 04/29/18 Doxazosin [Cardura*] 1 mg PO DAILY 04/29/18 Loratadine [Claritin*] 10 mg PO DAILY 04/29/18 Atorvastatin Calcium [Lipitor] 80 mg PO BEDTIME #30 tab 05/01/18 Clopidogrel Bisulfate [Plavix*] 75 mg PO DAILY #30 tablet 05/01/18 Doxazosin [Cardura*] 1 mg PO DAILY tab 05/01/18 Loratadine [Claritin*] 10 mg PO DAILY tab 05/01/18 Metoprolol Tartrate [Lopressor*] 25 mg PO BID #60 tab 05/01/18 Nitroglycerin [Nitrostat*] 0.4 mg SL UD PRN #1 bottle 05/01/18 Valsartan 160 mg PO DAILY #30 tablet 05/01/18 New Medications: Atorvastatin Calcium [Lipitor] 80 mg PO BEDTIME #30 tab Clopidogrel Bisulfate [Plavix*] 75 mg PO DAILY #30 tablet Metoprolol Tartrate [Lopressor*] 25 mg PO BID #60 tab Nitroglycerin [Nitrostat*] 0.4 mg SL UD PRN #1 bottle PRN Reason: Pain Scale 2-4 (Mild) Valsartan 160 mg PO DAILY #30 tablet Patient Discharge Instructions: Please follow up with your primary care physician in 1 week. Please follow up with cardiology in 2 weeks. Information provided to you. Please return to the Emergency room for worsening symptoms. Diet: AHA Activity: Ad duane Followup: Zechariah Gu MD [ACTIVE - CAN ADMIT] - 1-2 Weeks Time spent managing pt's care (in minutes): 55
--- NOTE | 2018-05-07 08:22 | PN ---
Date of Progress Note: 05/01/2018 Ms. Reinoso is a 53, was admitted with a non-ST elevation myocardial infarction on 04/29/2018. Yesterd ay, 04/30/2018, she underwent an LAD stent by Dr. Whipple. The patient overnight had no telemetry iss ue. No chest pain. The entry site of the catheterization was intact. No hematoma. The patient adrián l be going home today on aspirin, beta-denisa, statin, and Plavix. We would like to see her in the office in the next 2 weeks. The case was discussed with Dr. Vazquez. EVA/ERNESTO Voice ID: [id number] Report ID: [id number]
== END 2018-05-01 12:50 | disposition home or self-care (01) | DRG 247 ==
LOC: ER 07:09 → ERHOLD 08:27 → 2ND 13:54
PROVIDERS: ADMIT Family Medicine; ATTEND Family Medicine
PROC: 027034Z Dilation of Coronary Artery, One Artery with Drug-eluting Intraluminal Device, Percutaneous Approach (ICD-10-PCS; principal; 2018-04-30)
PROC: 4A023N7 Measurement of Cardiac Sampling and Pressure, Left Heart, Percutaneous Approach (ICD-10-PCS; 2018-04-30)
PROC: B211YZZ Fluoroscopy of Multiple Coronary Arteries using Other Contrast (ICD-10-PCS; 2018-04-30)
PROC: B215YZZ Fluoroscopy of Left Heart using Other Contrast (ICD-10-PCS; 2018-04-30)
DX: I21.4 Non-ST elevation (NSTEMI) myocardial infarction (principal); J30.2 Other seasonal allergic rhinitis; I10 Essential (primary) hypertension; K21.9 Gastro-esophageal reflux disease without esophagitis; R73.9 Hyperglycemia, unspecified; E66.9 Obesity, unspecified; Z68.38 Body mass index [BMI] 38.0-38.9, adult
CPT/HCPCS: 36415; 71045; 71275; 74175; 80048; 80061; 80076; 81003; 83036; 83690; 83735; 83880; 84484; 85025; 85027; 85347; 85610; 87086; 87088; 92928; 93005; 93458; 94760; C1725; C1877; C1893; G0008; J0583; J1644; J1650; J2250; J2270; J2405; J3010; J7030; J7512; Q2035; Q9967